=== PATIENT | male | born 1985 | race Caucasian/White ===

== ENCOUNTER 2021-07-06 16:50 | Emergency (ER) | payer SELFPAY ==
[2021-07-06] MEDS ORDERED: Dicyclomine 10 MG Cap PO ONE (17:36)
--- NOTE | 2021-07-06 17:43 | EDM.PDOC ---
<Sheryl Moura - Last Filed: 07/06/21 19:03> ED HPI GENERAL MEDICAL PROBLEM - General Chief Complaint: Abdominal Pain Stated Complaint: CROHNS FIRE UP Time Seen by Provider: 07/06/21 17:10 Source of Information: Reports: Patient History Limitations: Reports: Combative/Threatening - History of Present Illness Onset: Other (Last night) Duration: Day(s):, Getting Worse Location: Reports: Abdomen Quality: Reports: Other (Cramping) Severity: Severe Improves with: Reports: None Worsens with: Reports: None Associated Symptoms: Denies: Fever/Chills, Headaches, Nausea/Vomiting Middle Abdomen Pain Score (Numeric/FACES): 10 - Related Data Allergies Allergy/AdvReac Type Severity Reaction Status Date / Time No Known Allergies Allergy Verified 07/06/21 17:15 Home Meds: Home Meds Dicyclomine [Bentyl] 20 mg PO TID #15 tab 07/06/21 [Rx] predniSONE 20 mg PO ASDIRECTED #15 tab 07/06/21 [Rx] Past Medical History HEENT History: Reports: Other (See Below) Other HEENT History: fractured jaw Gastrointestinal History: Reports: Other (See Below) Other Gastrointestinal History: crohns disease Musculoskeletal History: Reports: Other (See Below) Other Musculoskeletal History: ruptured disc-hhad back surgery - Infectious Disease History Infectious Disease History: Reports: Novel Coronavirus Social & Family History - Tobacco Use Tobacco Use Status *Q: Current Every Day Tobacco User Years of Tobacco use: 20 Packs/Tins Daily: 0.4 - Caffeine Use Caffeine Use: Reports: Coffee, Energy Drinks, Soda, Tea - Recreational Drug Use Recreational Drug Type: Reports: Marijuana/Hashish Recreational Drug Use Frequency: Daily ED ROS GENERAL - Review of Systems Review Of Systems: Comprehensive ROS is negative, except as noted in HPI. Constitutional: Reports: No Symptoms HEENT: Reports: No Symptoms Respiratory: Reports: No Symptoms Cardiovascular: Reports: No Symptoms Endocrine: Reports: No Symptoms GI/Abdominal: Reports: Abdominal Pain. Denies: Black Stool, Bloody Stool, Constipation, Diarrhea, Distension, Melena, Nausea, Vomiting : Reports: No Symptoms Musculoskeletal: Reports: No Symptoms Skin: Reports: No Symptoms Neurological: Reports: No Symptoms Psychiatric: Reports: No Symptoms Hematologic/Lymphatic: Reports: No Symptoms Immunologic: Reports: No Symptoms ED EXAM, GI/ABD - Physical Exam Exam: See Below Exam Limited By: Uncooperative (agitated) General Appearance: Alert, No Apparent Distress Respiratory/Chest: No Respiratory Distress, Lungs Clear, Normal Breath Sounds Cardiovascular: Regular Rate, Rhythm GI/Abdominal Exam: Guarding, Rigid, Tender, Abnormal Bowel Sounds (hypoactive), Other (Increased tympany. ) Course - Vital Signs Text/Narrative:: Mr. Kamar Savage is a 36 [id number] who is visiting from [place]. He feels he is having a Chron's flare, and is complaining of abdominal cramping and pain. At one point he reports this has never happened before, then later he reports the last time this happened, in 2016, he had to have his stomach pumped. The flare stared last night after spicy chicken kirsten. It has gradually been getting worse. Nothing makes it better or worse. Last BM was 2 days ago. This is normal for him. He has been able to keep a little water down. No appetite. Denies vomiting, nausea and diarrhea. Denies current medication or recreational drug use, except for daily marijuana use. The physical exam was shorted due to the patient being upset with the nurse, who was attempting to insert and IV "not being in my vein". He became upset and agitated after this. PEGGY Quintana, returned to complete the exam. Departure - Departure Disposition: Home, Self-Care 01 Clinical Impression: Acute Crohn's disease Qualifiers: Digestive disease complication type: without complication Qualified Code(s): K50.90 - Crohn's disease, unspecified, without complications Constipation Qualifiers: Constipation type: other constipation type Qualified Code(s): K59.09 - Other constipation - Discharge Information Prescriptions: Dicyclomine [Bentyl] 20 mg PO TID #15 tab predniSONE 20 mg PO ASDIRECTED #15 tab Instructions: Crohn's Disease, Constipation, Adult, [id number] Referrals: PCP,None [Primary Care Provider] - Forms: ED Department Discharge Additional Instructions: You were evaluated in the ER today for your abdominal discomfort. Labs were within normal limits, and it is likely you are having a flare of your Crohn's disease. You have been given 2 medications for management of this. 1 will be dicyclomine, please take as directed. The other is prednisone again please take as directed. This medication was electronically sent to the [place] pharmacy located in the [facility]. You may take 500 mg Tylenol (acetaminophen) or 600 mg ibuprofen (Advil, Motrin) every 6 hours as needed for ongoing pain management. Do not exceed 4000 mg Tylenol or 3200 mg ibuprofen in a 24-hour time span. Your abdomen x-ray did demonstrate quite a bit of stool throughout the colon as well, I would recommend that you do stool softeners on a daily basis, to keep your bowel health regular. You may also try some warm prune juice to see if this helps relieve some of the stool in your colon. Do not hesitate to return to the ER at any time if symptoms change or worsen. <Erica Quintana V - Last Filed: 07/06/21 19:06> Course - Vital Signs Last Recorded V/S: Last Vital Signs Temp 97.0 F 07/06/21 17:17 Pulse 92 07/06/21 17:17 Resp 20 07/06/21 17:17 BP 124/86 07/06/21 17:17 Pulse Ox 99 07/06/21 17:17 - Orders/Labs/Meds Orders: Active Orders 24 hr Category Date Time Status Abdomen 2V AP Flat Upright [CR] Stat Exams 07/06/21 17:33 Ordered DRUG SCREEN, URINE [URCHEM] Stat Lab 07/06/21 17:33 Ordered Labs: Laboratory Tests 07/06/21 07/06/21 Range/Units 18:00 18:00 WBC 11.74 H (4.23-9.07) K/mm3 RBC 5.47 (4.63-6.08) M/mm3 Hgb 15.8 (13.7-17.5) gm/dl Hct 48.7 (40.1-51.0) % MCV 89.0 (79.0-92.2) fl MCH 28.9 (25.7-32.2) pg MCHC 32.4 (32.2-35.5) g/dl RDW Std Deviation 42.9 (35.1-43.9) fL Plt Count 294 (163-337) K/mm3 MPV 8.6 L (9.4-12.3) fl Neut % (Auto) 81.1 H (34.0-67.9) % Lymph % (Auto) 9.1 L (21.8-53.1) % Stanley % (Auto) 8.4 (5.3-12.2) % Eos % (Auto) 1.0 (0.8-7.0) Baso % (Auto) 0.2 (0.1-1.2) % Neut # (Auto) 9.52 H (1.78-5.38) K/mm3 Lymph # (Auto) 1.07 L (1.32-3.57) K/mm3 Stanley # (Auto) 0.99 H (0.30-0.82) K/mm3 Eos # (Auto) 0.12 (0.04-0.54) K/mm3 Baso # (Auto) 0.02 (0.01-0.08) K/mm3 Sodium 140 (136-145) mEq/L Potassium 4.5 (3.5-5.1) mEq/L Chloride 101 (98-107) mEq/L Carbon Dioxide 31 (21-32) mEq/L Anion Gap 12.5 (5-15) BUN 19 H (7-18) mg/dL Creatinine 1.2 (0.7-1.3) mg/dL Est Cr Clr Drug Dosing 75.04 mL/min Estimated GFR (MDRD) > 60 (>60) mL/min BUN/Creatinine Ratio 15.8 (14-18) Glucose 113 H (70-99) mg/dL Calcium 9.4 (8.5-10.1) mg/dL Total Bilirubin 0.5 (0.2-1.0) mg/dL AST 14 L (15-37) U/L ALT 23 (16-63) U/L Alkaline Phosphatase 77 (46-116) U/L C-Reactive Protein 0.8 (<1.0) mg/dL Total Protein 8.2 (6.4-8.2) g/dl Albumin 4.1 (3.4-5.0) g/dl Globulin 4.1 gm/dL Albumin/Globulin Ratio 1.0 (1-2) Lipase 135 (73-393) U/L Meds: Medications Discontinued Medications Generic Name Dose Route Start Last Admin Trade Name Freq PRN Reason Stop Dose Admin Dicyclomine HCl 20 mg 07/06/21 17:36 07/06/21 18:02 Dicyclomine 10 Mg Cap PO 07/06/21 17:37 20 mg ONETIME ONE Administration Polyethylene Glycol 85 gm 07/06/21 18:07 Polyethylene Glycol 3350 Powder 17 Gm Packet PO 07/06/21 18:08 ONETIME ONE - Re-Assessments/Exams Free Text/Narrative Re-Assessment/Exam: 07/06/21 18:04 I have read and reviewed the student's HPI and examined the patient and agree with Efe RAMSEY. We will go ahead and get some basic labs, give the patient some dicyclomine for his abdomen discomfort. We will also get a flat and upright abdomen for evaluation. Departure - Departure Time of Disposition: 19:04 Condition: Good - Discharge Information *PRESCRIPTION DRUG MONITORING PROGRAM REVIEWED*: No *COPY OF PRESCRIPTION DRUG MONITORING REPORT IN PATIENT CARLITO: No Sepsis Event Note (ED) - Focused Exam Vital Signs: Vital Signs Temp Pulse Resp BP Pulse Ox 07/06/21 17:17 97.0 F 92 20 124/86 99 - My Orders Last 24 Hours: My Active Orders 07/06/21 17:33 Abdomen 2V AP Flat Upright [CR] Stat DRUG SCREEN, URINE [URCHEM] Stat - Assessment/Plan Last 24 Hours: My Active Orders 07/06/21 17:33 Abdomen 2V AP Flat Upright [CR] Stat DRUG SCREEN, URINE [URCHEM] Stat
[2021-07-06] MEDS: Polyethylene Glycol 3350 Powder 17 GM Packet PO ONE (19:33)
--- NOTE | 2021-07-07 08:40 | CR ---
Abdomen: Supine and upright views of the abdomen were obtained. Comparison: No prior abdominal imaging is available. Dilated small bowel loops are seen. Findings are suspicious for small bowel obstruction. There is stool noted within the colon. No free air is seen. Bony structures show nothing acute. No abnormal calcifications are seen. Impression: 1. Dilated small bowel loops which are felt compatible with small bowel obstruction. Diagnostic code #3
== END 2021-07-06 19:34 | disposition home or self-care (01) ==
LOC: JD.ED 16:50
DX: K50.90 Crohn's disease, unspecified, without complications (principal); K59.09 Other constipation; Z72.0 Tobacco use
CPT/HCPCS: 36415; 74019; 80053; 83690; 85025; 86140; 99284; A9270

== ENCOUNTER 2023-01-17 19:58 | Emergency (ER) | payer SELFPAY | END 2023-01-17 21:00 | disposition home or self-care (01) | LOC: JD.ED 19:58 | DX: S93.601A Unspecified sprain of right foot, initial encounter (principal); S93.401A Sprain of unspecified ligament of right ankle, initial encounter; Z86.16 Personal history of COVID-19; Y93.39 Activity, other involving climbing, rappelling and jumping off | CPT/HCPCS: 73610-26-RT; 73610-RT; 73630-26-RT; 73630-RT; 99283 ==

== ENCOUNTER 2024-12-13 23:14 | Emergency (ER) | payer MEDICAID | END 2024-12-14 01:09 | disposition home or self-care (01) | LOC: JD.ED 23:14 | DX: S06.0X0A Concussion without loss of consciousness, initial encounter (principal); S02.40EA Zygomatic fracture, right side, initial encounter for closed fracture; S02.31XA Fracture of orbital floor, right side, initial encounter for closed fracture; S02.40CA Maxillary fracture, right side, initial encounter for closed fracture; S02.81XA Fracture of other specified skull and facial bones, right side, initial encounter for closed fracture; Z86.16 Personal history of COVID-19; F17.200 Nicotine dependence, unspecified, uncomplicated; V18.0XXA Pedal cycle driver injured in noncollision transport accident in nontraffic accident, initial encounter | CPT/HCPCS: 70450; 70450-26; 70486; 70486-26; 99284 ==